=== PATIENT | female | born 1960 | race Caucasian/White ===

== ENCOUNTER 2019-07-15 18:38 | Observation (INO) ==
[2019-07-15] MEDS ORDERED: *HR* HYDROmorphone (PF) 1 MG/ML SYRINGE IM ONE (18:54)
[2019-07-15] MEDS ORDERED: Ondansetron 4 MG/2 ML VIAL IVP ONE (18:54)
[2019-07-15] MEDS ORDERED: *HR* FentaNYL (PF) 100 MCG/2 ML VIAL IVP ONE (20:11)
[2019-07-15] MEDS ORDERED: Orphenadrine 60 MG/2 ML VIAL IM ONE (20:11)
[2019-07-15] MEDS ORDERED: D5% in Water 1,000 ML IVC PRN (22:36)
[2019-07-15] MEDS ORDERED: Naloxone 0.4 MG/ML INJ IVP PRN (22:36)
[2019-07-15] MEDS ORDERED: Ondansetron ODT 4 MG TAB.RAPDIS SL PRN (22:36)
[2019-07-15] MEDS ORDERED: Dextrose Gel 15 GM/37.5 ML TUBE PO PRN ×2 (22:36)
[2019-07-15] MEDS ORDERED: Ibuprofen 400 MG TABLET PO PRN (22:36)
[2019-07-15] MEDS ORDERED: *HR* HYDROmorphone (PF) 1 MG/ML SYRINGE IVP PRN (22:36)
[2019-07-15] MEDS ORDERED: *HR* Dextrose 50 % in Water (Vial) 50 ML VIAL IVP PRN (22:36)
[2019-07-15] MEDS ORDERED: *HR* OxyCODONE/APAP 5/325 TABLET PO PRN (23:12)
[2019-07-16] MEDS: *HR* OxyCODONE Immed Rel 5 MG TABLET PO PRN ×2 (00:19→08:18)
[2019-07-16] MEDS ORDERED: tiZANidine 4 MG TABLET PO ONE (03:15)
[2019-07-16] MEDS: *HR* HYDROmorphone (PF) 1 MG/ML SYRINGE IVP PRN ×2 (03:32→12:26)
[2019-07-16] MEDS: Insulin LISPRO 300 UNITS/3 ML VIAL SQ SCH ×2 (08:18→12:15)
[2019-07-16] MEDS ORDERED: Pregabalin 50 MG CAPSULE PO SCH (09:00)
[2019-07-16] MEDS ORDERED: Aspirin Enteric Coated 81 MG Tablet PO SCH (09:00)
[2019-07-16] MEDS ORDERED: amLODIPine 5 MG TABLET PO SCH (09:00)
[2019-07-16] MEDS ORDERED: Furosemide 20 MG TABLET PO SCH (09:00)
[2019-07-16] MEDS ORDERED: Loratadine 10 MG TABLET PO SCH (09:00)
[2019-07-16] MEDS ORDERED: FLUoxetine 20 MG CAPSULE PO SCH (09:00)
[2019-07-16] MEDS ORDERED: Cholecalciferol (D-3) 1,000 UNIT (25MCG) TABLET PO SCH (09:00)
[2019-07-16] MEDS ORDERED: tiZANidine 4 MG TABLET PO SCH (09:00)
[2019-07-16] MEDS ORDERED: DULAGLUTIDE 1.5 MG SQ SCH (09:00)
[2019-07-16] MEDS ORDERED: (Empagliflozin [Jardiance] 25 MG PO SCH (09:00)
[2019-07-16] MEDS ORDERED: 0.9 % Sodium Chloride 1,000 ML IVC ONE ×2 (10:14→12:21)
[2019-07-16] MEDS ORDERED: 0.9 % Sodium Chloride 1,000 ML ONE (10:19)
[2019-07-16 13:58] VITALS: BP 104/70
[2019-07-16] MEDS ORDERED: carvediloL 6.25 MG TABLET PO SCH (17:00)
== END 2019-07-16 14:28 | disposition short-term general hospital (02) ==
LOC: INPPIK 18:38 → EMEROOPIK 18:38 → INPPIK 22:19
PROVIDERS: ADMIT Family Medicine; ATTEND Family Medicine